=== PATIENT | male | born 1990 | race Caucasian/White ===

== ENCOUNTER 2019-03-21 12:27 | Emergency (ER) | payer SELFPAY ==
[~2019-03-21] VITALS: Ht 182.9 cm; Wt 78.9 kg
== END 2019-03-21 15:55 | disposition left against medical advice (07) ==
LOC: ER 12:27
DX: Z53.21 Procedure and treatment not carried out due to patient leaving prior to being seen by health care provider (principal)
CPT/HCPCS: 71046; 99283-25

== ENCOUNTER 2019-12-26 05:25 | Emergency (ER) | payer SELFPAY ==
[~2019-12-26] VITALS: Ht 182.9 cm; Wt 81.7 kg
[2019-12-26] MEDS ORDERED: NAPR500 PO (06:44)
[2019-12-26] MEDS ORDERED: PRED20 PO (06:44)
== END 2019-12-26 06:54 | disposition home or self-care (01) ==
LOC: ER 05:25
DX: M25.511 Pain in right shoulder (principal); F17.210 Nicotine dependence, cigarettes, uncomplicated; Z88.5 Allergy status to narcotic agent; Z87.442 Personal history of urinary calculi
CPT/HCPCS: 73020; 99283-25

== ENCOUNTER 2021-01-22 17:41 | Emergency (ER) | payer SELFPAY ==
[~2021-01-22] VITALS: Ht 182.9 cm; Wt 81.7 kg
[~2021-01-22 17:41] MED LIST: NAPR500 PO; PRED20 PO
[2021-01-22] MEDS ORDERED: Cleocin HCl150 MG PO (17:55)
== END 2021-01-22 18:12 | disposition home or self-care (01) ==
LOC: ER 17:41
DX: K04.7 Periapical abscess without sinus (principal); K03.81 Cracked tooth; Z88.5 Allergy status to narcotic agent; Z79.52 Long term (current) use of systemic steroids
CPT/HCPCS: 99282; A9270

== ENCOUNTER 2021-03-01 10:03 | Emergency (ER) | payer SELFPAY ==
[~2021-03-01] VITALS: Ht 182.9 cm; Wt 81.7 kg
[~2021-03-01 10:03] MED LIST changes: +Cleocin HCl150 MG PO
[2021-03-01] MEDS ORDERED: ONDA4ODT MM (10:45)
== END 2021-03-01 10:51 | disposition home or self-care (01) ==
LOC: ER 10:03
DX: U07.1 COVID-19 (principal); F17.210 Nicotine dependence, cigarettes, uncomplicated; Z88.5 Allergy status to narcotic agent; Z79.899 Other long term (current) drug therapy
CPT/HCPCS: 99283; A9270

== ENCOUNTER 2021-03-10 00:47 | Emergency (ER) | payer SELFPAY ==
[~2021-03-10 00:47] MED LIST changes: +ONDA4ODT MM
== END 2021-03-10 01:05 | disposition left against medical advice (07) ==
LOC: ER 00:47
DX: Z53.21 Procedure and treatment not carried out due to patient leaving prior to being seen by health care provider (principal)

== ENCOUNTER 2021-08-09 13:30 | Emergency (ER) | payer OTHER ==
[~2021-08-09] VITALS: Ht 182.9 cm; Wt 83.9 kg
[2021-08-09] MEDS ORDERED: AMOCLA875 PO (13:41)
[2021-08-09] MEDS ORDERED: Percocet 5-3251 EACH PO (13:41)
== END 2021-08-09 13:43 | disposition home or self-care (01) ==
LOC: ER 13:30
DX: S02.5XXA Fracture of tooth (traumatic), initial encounter for closed fracture (principal); F17.210 Nicotine dependence, cigarettes, uncomplicated; Z88.5 Allergy status to narcotic agent; X58.XXXA Exposure to other specified factors, initial encounter; Y99.0 Civilian activity done for income or pay
CPT/HCPCS: 99282

== ENCOUNTER 2021-11-03 11:51 | Emergency (ER) | payer OTHER ==
[~2021-11-03] VITALS: Ht 182.9 cm; Wt 86.2 kg
[~2021-11-03 11:51] MED LIST changes: +AMOCLA875 PO; +Percocet 5-3251 EACH PO
[2021-11-03 12:18] LABS: BASOPHILS ABSOLUTE AUTO 0.03 K/mm3 (0.00-0.23); BASOPHILS PERCENT AUTO 0 % (0-2); EOSINOPHILS ABSOLUTE AUTO 0.03 K/mm3 (0.00-0.68); EOSINOPHILS PERCENT AUTO 0 % (0-6); Hemoglobin 17.4 g/dL (13.5-17.5); IMMATURE GRAN ABSOLUTE AUTO 0.03 K/mm3 (0.00-0.10); IMMATURE GRAN PERCENT AUTO 0 % (0-1); LYMPHOCYTES ABSOLUTE AUTO 2.32 K/mm3 (0.84-5.20); LYMPHOCYTES PERCENT AUTO 23 % (21-46); MONOCYTES ABSOLUTE AUTO 0.77 K/mm3 (0.16-1.47); MONOCYTES PERCENT AUTO 8 % (4-13); Mean Corpuscular HGB 29.5 pg (26.0-34.0); Mean Corpuscular HGB Conc 34.1 g/dL (31.5-36.5); Mean Corpuscular Volume 87 fL (80-100); Mean Platelet Volume 9.9 fL (9.1-12.4); NEUTROPHILS ABSOLUTE AUTO 6.86 K/mm3 (1.96-9.15); NEUTROPHILS PERCENT AUTO 68 % (41-73); Platelet Count 249 K/mm3 (150-400); RDW Coefficient Variation 13.7 % (11.7-14.2); RDW Standard Deviation 43.8 fL (35.1-46.3); Red Blood Cell Count 5.89 M/mm3 (4.30-5.90); White Blood Cell Count 10.04 K/mm3 (4.00-11.30)
[2021-11-03 13:08] LABS: Albumin, Blood 3.9 g/dL (3.4-5.0); Bilirubin, Total 0.9 mg/dL (0.1-1.0); Bun/Creatinine Ratio 23.6 (12.0-20.0); Calcium, Blood 9.4 mg/dL (8.5-10.1); Creatinine, Blood 1.06 mg/dL (0.60-1.20); Globulin, Blood 3.9 g/dL (2.2-4.0); Potassium, Blood 4.2 mmol/L (3.5-5.5); Total Protein, Blood 7.8 g/dL (6.4-8.2)
[2021-11-03] MEDS ORDERED: Vistaril25 MG PO (14:49)
== END 2021-11-03 15:34 | disposition home or self-care (01) ==
LOC: ER 11:51
PROVIDERS: Physician Assistant
DX: F41.9 Anxiety disorder, unspecified (principal); F17.210 Nicotine dependence, cigarettes, uncomplicated; Z88.5 Allergy status to narcotic agent
CPT/HCPCS: 71046; 80053; 83690; 84484; 85025; 93005; 93010; 99284-25; A9270; J7030

== ENCOUNTER 2022-09-10 17:44 | Emergency (ER) | payer OTHER ==
[~2022-09-10] VITALS: Ht 182.9 cm; Wt 83.9 kg
[~2022-09-10 17:44] MED LIST changes: +Vistaril25 MG PO
[2022-09-10 17:57] VITALS: BP 150/105
[2022-09-10] MEDS ORDERED: AMOCLA875 PO (20:39)
== END 2022-09-10 20:57 | disposition home or self-care (01) ==
LOC: ER 17:44
DX: K00.7 Teething syndrome (principal); F17.210 Nicotine dependence, cigarettes, uncomplicated; Z88.5 Allergy status to narcotic agent; Z87.442 Personal history of urinary calculi; Z79.899 Other long term (current) drug therapy
CPT/HCPCS: 96372; 99282; A9270; J1885

== ENCOUNTER 2022-10-26 19:20 | Emergency (ER) | payer OTHER ==
[~2022-10-26] VITALS: Ht 182.9 cm; Wt 86.2 kg
[2022-10-26 19:22] VITALS: BP 138/81
[2022-10-26] MEDS ORDERED: AMOCLA875 PO (22:59)
== END 2022-10-26 23:10 | disposition home or self-care (01) ==
LOC: ER 19:20
DX: K04.7 Periapical abscess without sinus (principal); Z88.5 Allergy status to narcotic agent; F17.200 Nicotine dependence, unspecified, uncomplicated
CPT/HCPCS: 99283; A9270

== ENCOUNTER 2024-10-06 19:43 | Emergency (ER) | payer OTHER ==
[~2024-10-06] VITALS: Ht 182.9 cm; Wt 93.0 kg
[2024-10-06 19:49] VITALS: BP 131/88
== END 2024-10-06 23:41 | disposition home or self-care (01) ==
LOC: ER 19:43
DX: L02.214 Cutaneous abscess of groin (principal); F17.210 Nicotine dependence, cigarettes, uncomplicated; Z88.5 Allergy status to narcotic agent
CPT/HCPCS: 10061; 76857; 99283-25